=== PATIENT | female | born 1990 | race Caucasian/White ===

== ENCOUNTER 2022-04-19 11:12 | Outpatient (CLI) | payer OTHER, SELFPAY ==
[2022-04-19 15:36] LABS: HIV 1/2/P24 Combo Screen* Negative (Negative)
[2022-04-19 16:02] LABS: Chlamydia DNA Amplified* NOT DETECTED (No Detected); GC DNA Amplified* NOT DETECTED (No Detected)
[2022-04-19 17:18] LABS: Hepatitis B Surface Antigen* Negative (Negative)
[2022-04-19 19:20] LABS: Hepatitis C Virus Antibody* Negative (Negative)
[2022-04-21 18:02] LABS: Varicella-Zoster Virus Ab, IgG 201.4 IV
[2022-04-21 18:09] LABS: Rubella Antibody IgG 12.1 IU/mL
[2022-04-22 00:37] LABS: Rapid Plasma Reagin (RPR) Non Reactive (Non Reactive)
== END 2022-04-19 11:13 | disposition home or self-care (01) ==
PROVIDERS: PCP Physician Assistant Medical; Visit Provider Advanced Practice Midwife
DX: Z34.91 Encounter for supervision of normal pregnancy, unspecified, first trimester (principal)
CPT/HCPCS: 76817; 86592; 86703; 86762; 86787; 86803; 86850; 86900; 86901; 87086; 87340; 87491; 87591

== ENCOUNTER 2022-06-14 10:31 | Outpatient (CLI) | payer OTHER, SELFPAY ==
[2022-06-16 12:18] LABS: Dating Other; Family Hx Neural Tube Defect No; Insulin Req Maternal Diabetes No; Maternal Race Nonblack; Maternal Screen Interpretation Screen Neg; MoM for AFP 0.69; Number of Fetuses Singleton; Patient's AFP 21 ng/mL; Smoking No
== END 2022-06-14 10:32 | disposition home or self-care (01) ==
LOC: NFLDREF 10:32
PROVIDERS: PCP Physician Assistant Medical; Visit Provider Advanced Practice Midwife
DX: Z34.92 Encounter for supervision of normal pregnancy, unspecified, second trimester (principal); Z3A.17 17 weeks gestation of pregnancy
CPT/HCPCS: 81511

== ENCOUNTER 2022-07-22 07:23 | Outpatient (CLI) | payer OTHER, SELFPAY ==
--- NOTE | 2022-07-22 07:15 | CRLHL7_ITS ---
For Patients: As a result of the Cures Act, medical imaging exams and procedure reports are released immediately into your electronic medical record. You may view this report before your referring provider. If you have questions, please contact your health care provider. INDICATION: Second trimester spotting per vagina. Evaluate well-being. TECHNIQUE: Transabdominal obstetrical ultrasound. COMPARISON: April 19, 2022. FINDINGS: Single living intrauterine in breech presentation. Anterior placenta. heart rate 144 beats per minute. Amniotic fluid volume is no is normal. Single deepest pocket measurement 3.9 cm. Biparietal diameter 5.7 cm, 23 weeks 2 days, 78th percentile. Head circumference 21.7 cm, 23 weeks 5 days, 77th percentile. Abdominal circumference 18.8 cm, 23 weeks 4 days, 78th percentile. Femur length 3.9 cm, 22 weeks 4 days, 33rd percentile. Composite calculated ultrasound age 23 weeks 2 days with a sonographic due date of November 16, 2022. Appropriate growth and maturation in the interval. Estimated weight 572 g which lies at the 68th percentile. The head to abdominal circumference ratio is 1.15 (1.05-1.21). Femur length to abdominal circumference ratio 20.73 (20.0-24.0). IMPRESSION: Intrauterine in breech presentation. Composite calculated ultrasound age 23 weeks 2 days with a sonographic due date of November 16, 2022. Appropriate growth and maturation in the interval. Estimated weight lies at the 68th percentile. Dictated by Shyam Tavera MD @ 07/22/2022 10:04:22 AM (Electronically Signed)
== END 2022-07-22 07:24 | disposition home or self-care (01) ==
LOC: US 07:24
PROVIDERS: PCP Physician Assistant Medical; Visit Provider Advanced Practice Midwife
DX: O46.92 Antepartum hemorrhage, unspecified, second trimester (principal); Z3A.23 23 weeks gestation of pregnancy
CPT/HCPCS: 76816

== ENCOUNTER 2022-08-29 09:00 | Outpatient (CLI) | payer OTHER, SELFPAY ==
[2022-08-31 07:38] LABS: Rapid Plasma Reagin (RPR) Non Reactive (Non Reactive)
== END 2022-08-29 09:01 | disposition home or self-care (01) ==
LOC: NFLDREF 09:00
PROVIDERS: PCP Physician Assistant Medical; Visit Provider Advanced Practice Midwife
DX: Z34.83 Encounter for supervision of other normal pregnancy, third trimester (principal); Z3A.28 28 weeks gestation of pregnancy
CPT/HCPCS: 86592

== ENCOUNTER 2022-09-06 08:18 | Outpatient (CLI) | payer OTHER, SELFPAY ==
[2022-09-06 08:36] LABS: Glucose Fasting Check 90 mg/dl (60-115)
[2022-09-06 12:32] LABS: Glucose 1 Hour Gest 167 mg/dl (70-180)
[2022-09-06 12:33] LABS: Glucose GTT-Gestational 3 Hr 126 mg/dl (70-140)
== END 2022-09-06 08:19 | disposition home or self-care (01) ==
PROVIDERS: PCP Physician Assistant Medical; Visit Provider Advanced Practice Midwife
DX: Z34.83 Encounter for supervision of other normal pregnancy, third trimester (principal)
CPT/HCPCS: 82951; 82952

== ENCOUNTER 2022-09-16 10:40 | Outpatient (CLI) | payer OTHER, SELFPAY ==
[2022-09-16 14:10] LABS: Alanine Aminotransferase* 22 U/L (4-35); Aspartate Amino Transferase* 32 U/L (12-35); Blood Urea Nitrogen* 9 mg/dL (5-24); Creatinine* 0.4 mg/dL (0.5-1.5); Estimated Glomerular Filt Rate 134 ml/min; Uric Acid* 4.8 mg/dL (2.2-8.4)
[2022-09-16 14:24] LABS: Total Protein Urine 7 mg/dL
[2022-09-16 14:25] LABS: Creatinine Urine 83.9 mg/dL
== END 2022-09-16 10:41 | disposition home or self-care (01) ==
PROVIDERS: PCP Physician Assistant Medical; Visit Provider Advanced Practice Midwife
DX: O13.3 Gestational [pregnancy-induced] hypertension without significant proteinuria, third trimester (principal); Z3A.30 30 weeks gestation of pregnancy
CPT/HCPCS: 82565; 82570; 84156; 84450; 84460; 84520; 84550

== ENCOUNTER 2023-12-20 07:33 | Outpatient (CLI) | payer OTHER, SELFPAY ==
--- NOTE | 2023-12-20 07:45 | MM_ITS ---
Patient: MARCO SUNG Facility:?[facility] Patient ID:?[id number] Site Patient ID:?[id number]. Site :?1990 Study:?XRay-Breast Bilateral 3D W/CAD-12/20/2023 8:33:55 AM Ordering Physician:?Twyla Valles Final Report: DIGITAL DIAGNOSTIC BILATERAL MAMMOGRAM USING TOMOSYNTHESIS AND COMPUTER-AIDED DETECTION BILATERAL BREAST ULTRASOUND CLINICAL HISTORY: BILATERAL breast pain. COMPARISON: None. TECHNIQUE: Digital BILATERAL mammogram in four projections. Tomosynthesis and CAD utilized. Real-time ultrasound imaging of BILATERAL breast with imaging documentation. BREAST COMPOSITION: The breasts are heterogeneously dense, which may obscure small masses. FINDINGS: 3D CC/MLO BILATERAL mammogram images submitted. Benign calcifications are present bilaterally. No adenopathy. No architectural distortion or suspicious mass. Targeted BILATERAL ultrasound performed. At 9 o`clock RIGHT breast 10 cm from the nipple there is normal fibroglandular tissue. At 2 o`clock LEFT breast 11 cm from the nipple there is normal fibroglandular tissue. Normal ultrasound of the RIGHT retroareolar breast tissue noted. IMPRESSION: No suspicious findings. No evidence of malignancy. RECOMMENDATIONS: Clinical follow-up. Age-appropriate screening mammography Results and recommendations discussed with the patient. BI-RADS Category 2: Benign A lay language report of this examination will be provided to the patient. Dictated by Gabriel Arboleda MD @ 12/20/2023 10:13:08 AM jj/Dictated by: Gabriel Arboleda MD @ 12/20/2023 10:13:00 AM Signed by:?Gabriel Arboleda MD @12/20/2023 12:07:14 PM (Electronic Signature)
--- NOTE | 2023-12-20 08:15 | US_ITS ---
Patient: MARCO SUNG Facility:?[facility] Patient ID:?[id number] Site Patient ID:?[id number]. Site :?1990 Study:?US-Breast Right DR ZAVALA TO READ-12/20/2023 9:11:51 AM Ordering Physician:?MIMI ELLIOTT Final Report: PLEASE SEE DIGITAL DIAGNOSTIC BILATERAL MAMMOGRAM PERFORMED SAME DAY CRL:harriet larios/Dictated by: Gabriel Zavala MD @ 12/20/2023 10:13:00 AM Signed by:?Gabriel Zavala MD @12/20/2023 12:07:17 PM (Electronic Signature)
== END 2023-12-20 07:34 | disposition home or self-care (01) ==
LOC: MAMMO 07:35
PROVIDERS: PCP Physician Assistant Medical; Visit Provider Physician Assistant Medical
DX: N64.4 Mastodynia (principal); R92.1 Mammographic calcification found on diagnostic imaging of breast
CPT/HCPCS: 76642; 77066; G0279

== ENCOUNTER 2023-12-26 09:13 | Outpatient (CLI) | payer OTHER, SELFPAY | END 2023-12-26 09:14 | disposition home or self-care (01) | PROVIDERS: PCP Physician Assistant Medical; Visit Provider Physician Assistant Medical | DX: Z13.29 Encounter for screening for other suspected endocrine disorder (principal); Z13.220 Encounter for screening for lipoid disorders; Z13.228 Encounter for screening for other metabolic disorders; Z13.0 Encounter for screening for diseases of the blood and blood-forming organs and certain disorders involving the immune mechanism; Z13.1 Encounter for screening for diabetes mellitus | CPT/HCPCS: 80053; 80061; 84443 ==

== ENCOUNTER 2025-05-08 07:53 | Outpatient (CLI) | payer OTHER, SELFPAY | END 2025-05-08 07:54 | disposition home or self-care (01) | LOC: NFLDREF 05-10 23:01 | PROVIDERS: PCP Physician Assistant Medical; Referring Provider Physician Assistant Medical; Visit Provider Physician Assistant Medical | DX: R73.03 Prediabetes (principal); E66.01 Morbid (severe) obesity due to excess calories; Z13.6 Encounter for screening for cardiovascular disorders | CPT/HCPCS: 80053; 80061; 84443 ==